=== PATIENT | male | born 1970 | race Hispanic/Latino ===

== ENCOUNTER 2017-07-28 03:50 | Inpatient (IN) | payer OTHER ==
[2017-07-28] MEDS ORDERED: Belladonna-Phenobarbital PO STA (04:29)
--- NOTE | 2017-07-28 04:58 | ED PDOC ---
HPI: Abdomen Time Seen by Provider: 07/28/17 04:18 Chief Complaint (Nursing): Abdominal Pain Chief Complaint (Provider): Abdominal Pain History Per: Patient History/Exam Limitations: no limitations Onset/Duration Of Symptoms: Hrs (x 7) Outside of [place] travel?: Yes Other Location:: [facility], [place] Current Symptoms Are (Timing): Still Present Additional Complaint(s): 47 year old male with a who presents to the ED complaining of right sided abdominal pain, onset 7 hours ago. With the onset of the pain, he reports that he had an urge to defecate. Patient had a brief wave of nausea and denies any vomiting. PMD: none Past Medical History Reviewed: Historical Data, Nursing Documentation, Vital Signs Vital Signs: Last Vital Signs Temp 99.3 F 07/28/17 04:16 Pulse 86 07/28/17 04:16 Resp 16 07/28/17 04:16 BP 129/76 07/28/17 04:16 Pulse Ox 98 07/28/17 05:18 - Medical History Other PMH: Testicular torsion - Family History Family History: States: Unknown Family Hx - Social History Current smoker - smoking cessation education provided: No Alcohol: None Drugs: Denies - Allergies Allergies/Adverse Reactions: Allergies Allergy/AdvReac Type Severity Reaction Status Date / Time No Known Allergies Allergy Verified 07/28/17 04:19 Review of Systems ROS Statement: Except As Marked, All Systems Reviewed And Found Negative Gastrointestinal: Positive for: Nausea (brief wave), Abdominal Pain (right sided ). Negative for: Vomiting Physical Exam - Reviewed Nursing Documentation Reviewed: Yes Vital Signs Reviewed: Yes - Physical Exam Appears: Positive for: Non-toxic, No Acute Distress Head Exam: Positive for: ATRAUMATIC, NORMOCEPHALIC Skin: Positive for: Normal Color, Warm, Dry Eye Exam: Positive for: Normal appearance, PERRL Neck: Positive for: Normal, Painless ROM, Supple Gastrointestinal/Abdominal: Positive for: Tenderness (right upper/ flank). Negative for: Other (Yeung's sign; epigastric tenderness) Extremity: Positive for: Normal ROM. Negative for: Pedal Edema, Deformity Neurologic/Psych: Positive for: Alert, Oriented. Negative for: Motor/Sensory Deficits - Laboratory Results Result Diagrams: 07/28/17 04:57 07/28/17 04:57 - ECG O2 Sat by Pulse Oximetry: 98 (RA) Pulse Ox Interpretation: Normal Medical Decision Making Medical Decision Making: Time: 04:28 Impression: mild colitis versus gas Initial Plan: --CMP --CBC with differentials --Obstructive series x-ray -- 2 tab PO --Ibuprofen 600 mg PO 650AM Pt. not improving with donnatol/NSAID. Will get CT Abdomen, will sign out to Dr. Marizol Garcia Attestation: Documented by Natacha Jamil, acting as a scribe for Jon Ceja MD Provider Scribe Attestation: All medical record entries made by the Scribe were at my direction and personally dictated by me. I have reviewed the chart and agree that the record accurately reflects my personal performance of the history, physical exam, medical decision making, and the department course for this patient. I have also personally directed, reviewed, and agree with the discharge instructions and disposition. Disposition - Clinical Impression Clinical Impression: Abdominal pain - Patient ED Disposition Is Patient to be Admitted: Transfer of Care - Disposition Disposition: Transfer of Care Disposition Time: 07:00 Condition: STABLE Forms: [email or web address] (Tongan) Patient Signed Over To: Dulce Fontana Handoff Comments: pending CT
[2017-07-28 05:00] LABS: BASO % 0.3 % (0.0-2.0); EOS % 0.4 % (0.0-4.0); LYMPH # 0.8 K/uL (1.0-4.3); LYMPH % 6.3 % (20.0-40.0); MEAN CELL VOLUME 91.3 fl (80.0-94.0); MEAN CORPUSCULAR HEMOGLOBIN 30.1 pg (27.0-31.0); MEAN PLATELET VOLUME 6.7 fl (7.2-11.7); MONO # 0.9 K/uL (0.0-0.8); MONO % 6.9 % (0.0-10.0); NEUT # 10.8 K/uL (1.8-7.0); NEUT % 86.1 % (50.0-75.0); PLATELET COUNT 222 K/uL (130-400); RED CELL DISTRIBUTION WIDTH 12.1 % (11.5-14.5); WHITE BLOOD COUNT 12.5 K/uL (4.8-10.8)
[2017-07-28 05:09] LABS: ALB/GLOB RATIO 1.3 (1.0-2.1); ALKALINE PHOSPHATASE 47 U/L (38-126); ALT/SGPT 49 U/L (21-72); AST/SGOT 27 U/L (17-59); BILIRUBIN,TOTAL 1.4 mg/dl (0.2-1.3); BLOOD UREA NITROGEN 19 mg/dl (9-20); CALCIUM 9.3 mg/dL (8.4-10.2); CARBON DIOXIDE 28 mmol/L (22-30); CHLORIDE 102 mmol/L (98-107); GFR AFRICAN-AMERICAN > 60; GLUCOSE,RANDOM 124 mg/dL (75-110); POTASSIUM 4.1 MMOL/L (3.6-5.0); SODIUM 135 mmol/l (132-148); TOTAL PROTEIN 7.4 G/DL (6.3-8.2)
[2017-07-28] MEDS ORDERED: Iohexol 240 (50 ml) PO ONE (05:47)
[2017-07-28] MEDS ORDERED: Sodium Chloride 0.9% 1,000 ML IV STA (05:48)
[2017-07-28 05:49] LABS: EOSINOPHIL 2 % (0-7); NEUTROPHIL 82 % (42-75); TOTAL CELLS COUNTED 100
--- NOTE | 2017-07-28 07:21 | ED PDOC ---
- Laboratory Results Result Diagrams: 07/28/17 04:57 07/28/17 04:57 - ECG O2 Sat by Pulse Oximetry: 98 (RA) Pulse Ox Interpretation: Normal Medical Decision Making Medical Decision Making: Receiving sign out: Patient signed out to me by Dr. Ceja at [address] Abdomen and re- evaluation. Scribe Attestation: Documented by Kalie Gonzalez acting as a scribe for Dulce Fontana MD. Provider Attestation: All medical record entries made by the Scribe were at my direction and personally dictated by me. I have reviewed the chart and agree that the record accurately reflects my personal performance of the history, physical exam, medical decision making, and the department course for this patient. I have also personally directed, reviewed, and agree with the discharge instructions and disposition. Disposition Doctor Will See Patient In The: Hospital Counseled Patient/Family Regarding: Diagnosis - Clinical Impression Clinical Impression: Abdominal pain - POA Present On Arrival: None - Disposition Disposition: Routine/Home Disposition Time: 09:50 Condition: STABLE Forms: [employer] ([place]an) Progress Note - Review of Symptoms Events since last encounter: Time: 946 CT Abdomen FINDINGS: LOWER THORAX: Unremarkable. LIVER: Unremarkable. No gross lesion or ductal dilatation. GALLBLADDER AND BILE DUCTS: Unremarkable. PANCREAS: Unremarkable. No gross lesion or ductal dilatation. SPLEEN: Unremarkable. ADRENALS: Unremarkable. No mass. KIDNEYS AND URETERS: Unremarkable. No hydronephrosis. No solid mass. VASCULATURE: Unremarkable. No aortic aneurysm. BOWEL: Unremarkable. No obstruction. No gross mural thickening. APPENDIX: Appendiceal enhancement with appendiceal fluid and periappendiceal fat infiltration consistent with acute appendicitis. PERITONEUM: Unremarkable. No free fluid. No free air. LYMPH NODES: Unremarkable. No enlarged lymph nodes. BLADDER: Unremarkable. REPRODUCTIVE: Unremarkable. BONES: No acute fracture. OTHER FINDINGS: None. IMPRESSION: Acute appendicitis. Time: 954 Case discussed with surgical nurse practitioner manager fashion.
[2017-07-28] MEDS ORDERED: Iohexol 300 100 ML IJ ONE (08:48)
--- NOTE | 2017-07-28 09:30 | CT ---
PROCEDURE: CT Abdomen and Pelvis with contrast HISTORY: R sided abd pain COMPARISON: None. TECHNIQUE: Contrast dose: Radiation dose: Total exam DLP = mGy-cm. This CT exam was performed using one or more of the following dose reduction techniques: Automated exposure control, adjustment of the mA and/or kV according to patient size, and/or use of iterative reconstruction technique. FINDINGS: LOWER THORAX: Unremarkable. LIVER: Unremarkable. No gross lesion or ductal dilatation. GALLBLADDER AND BILE DUCTS: Unremarkable. PANCREAS: Unremarkable. No gross lesion or ductal dilatation. SPLEEN: Unremarkable. ADRENALS: Unremarkable. No mass. KIDNEYS AND URETERS: Unremarkable. No hydronephrosis. No solid mass. VASCULATURE: Unremarkable. No aortic aneurysm. BOWEL: Unremarkable. No obstruction. No gross mural thickening. APPENDIX: Appendiceal enhancement with appendiceal fluid and periappendiceal fat infiltration consistent with acute appendicitis. PERITONEUM: Unremarkable. No free fluid. No free air. LYMPH NODES: Unremarkable. No enlarged lymph nodes. BLADDER: Unremarkable. REPRODUCTIVE: Unremarkable. BONES: No acute fracture. OTHER FINDINGS: None. IMPRESSION: Acute appendicitis.
[2017-07-28] MEDS ORDERED: Piperacillin/Tazobact 3.375 GM in Sodium Chloride 0.9% 100 ML IVPB STA (10:10)
[2017-07-28] MEDS ORDERED: ceFAZolin IV 1 gm in Dextrose 0 GM/0 ML BAG IVPB ONE (11:17)
[2017-07-28] MEDS ORDERED: Bupivacaine 0.5% Inj(30mL) ONE (11:17)
[2017-07-28] MEDS ORDERED: Lidocaine 1% Inj (20ml) ONE (11:17)
--- NOTE | 2017-07-28 11:17 | RAD ---
PROCEDURE: Radiographs of the chest and abdomen (obstructive series) HISTORY: R sided abd pain COMPARISON: No prior. TECHNIQUE: AP radiograph of the chest, with upright and supine radiographs of the abdomen. FINDINGS: CHEST: Lungs: Clear. Cardiovascular: Normal size heart. No pulmonary vascular congestion. Pleura: No pleural fluid. No pneumothorax. Other findings: None. ABDOMEN AND PELVIS: Bowel: Unremarkable bowel gas pattern. No evidence of mechanical obstruction. Free air: None. Bones: Unremarkable. Other findings: None. IMPRESSION: Unremarkable radiographs of chest and abdomen. No evidence of mechanical bowel obstruction.
[2017-07-28] MEDS ORDERED: Lidocaine 4% (Laryng-O-Jet) Kit MM ONE (11:20)
[2017-07-28] MEDS ORDERED: Neostigmine Methylsulfate 2 MG/2 ML ML IV ONE (11:20)
[2017-07-28] MEDS ORDERED: Midazolam 2 MG/2 ML VIAL ONE (11:20)
[2017-07-28] MEDS ORDERED: Propofol 10 mg/ml Inj (20 ML) ONE (11:20)
[2017-07-28] MEDS ORDERED: Lidocaine 1% 5ml Abboject IV ONE (11:20)
[2017-07-28] MEDS ORDERED: Succinylcholine 200 mg/10 ml Inj IV ONE (11:20)
[2017-07-28] MEDS ORDERED: Rocuronium 10 mg/ml (5 ml) ONE (11:21)
--- NOTE | 2017-07-28 11:57 | CP.PCM.HP ---
<Soledad Benitez - Last Filed: 07/28/17 12:01> History of Present Illness - History of Present Illness History of Present Illness: GENERAL SURGERY HISTORY AND PHYSICAL FOR DR. SUAREZ 47yo M with PMHx of testicular torsion s/p repair presents to the ED with abdominal pain. His abdominal pain began around 6pm yesterday and was located in the RUQ/right flank. He tried pepto bismol and gasx which didn't not relieve his symptoms. He came to the ED around 3-4am this morning. He describes the pain as constant but was relieved after pain medication in the ED. He had a little nausea in the waiting room but it resolved. No vomiting. No diarrhea, last BM was last night. He last ate yesterday at 4pm. PMHx: testicular torsion as 12yo, GERD but now off meds, borderline hyperlipidemia Surgeries: surgery for testicular torsion Allergies: none Medications: none Social history: occasional etoh, former smoker, quit 17years ago, no illicit drug use Present on Admission - Present on Admission Any Indicators Present on Admission: No Review of Systems - Review of Systems All systems: reviewed and no additional remarkable complaints except (as per HPI ) Past Patient History - Past Medical History & Family History Past Medical History?: Yes - Past Social History Smoking Status: Former Smoker - CARDIAC Hx Cardiac Disorders: No - MUSCULOSKELETAL/RHEUMATOLOGICAL Hx Falls: No - GASTROINTESTINAL Other/Comment: endoscopy - GENITOURINARY/GYNECOLOGICAL Other/Comment: testicular torsion - PSYCHIATRIC Hx Substance Use: No - SURGICAL HISTORY Hx Surgeries: No - ANESTHESIA Hx Anesthesia: Yes Hx Anesthesia Reactions: No Meds Allergies/Adverse Reactions: Allergies Allergy/AdvReac Type Severity Reaction Status Date / Time No Known Allergies Allergy Verified 07/28/17 04:19 Physical Exam - Constitutional Appears: Well, Non-toxic, No Acute Distress - Head Exam Head Exam: ATRAUMATIC, NORMAL INSPECTION - Eye Exam Eye Exam: EOMI, Normal appearance - ENT Exam ENT Exam: Mucous Membranes Moist - Respiratory Exam Respiratory Exam: NORMAL BREATHING PATTERN. absent: Respiratory Distress - Cardiovascular Exam Cardiovascular Exam: +S1, +S2 - GI/Abdominal Exam GI & Abdominal Exam: Soft, Tenderness (tender in RUQ). absent: Distended, Firm , Guarding, Rebound, Rigid - Extremities Exam Extremities exam: Positive for: normal inspection. Negative for: calf tenderness - Neurological Exam Neurological exam: Alert, CN II-XII Intact, Oriented x3 - Psychiatric Exam Psychiatric exam: Normal Affect, Normal Mood - Skin Skin Exam: Dry, Normal Color, Warm Results - Vital Signs Recent Vital Signs: Last Vital Signs Temp 99.2 F 07/28/17 11:15 Pulse 100 H 07/28/17 11:30 Resp 19 07/28/17 11:30 BP 110/68 07/28/17 11:15 Pulse Ox 95 07/28/17 11:15 - Labs Result Diagrams: 07/28/17 04:57 07/28/17 04:57 Labs: Laboratory Results - last 24 hr 07/28/17 07/28/17 07/28/17 04:57 04:57 05:57 WBC 12.5 H RBC 4.49 Hgb 13.5 Hct 41.0 MCV 91.3 MCH 30.1 MCHC 33.0 RDW 12.1 Plt Count 222 MPV 6.7 L Neut % (Auto) 86.1 H Lymph % (Auto) 6.3 L [place] % (Auto) 6.9 Eos % (Auto) 0.4 Baso % (Auto) 0.3 Neut # 10.8 H Lymph # 0.8 L [place] # 0.9 H Eos # 0.0 Baso # 0.0 Neutrophils % (Manual) 82 H Lymphocytes % (Manual) 11 L Monocytes % (Manual) 5 Eosinophils % (Manual) 2 Platelet Estimate Normal Sodium 135 Potassium 4.1 Chloride 102 Carbon Dioxide 28 Anion Gap 9 L BUN 19 Creatinine 0.9 Est GFR ( Amer) > 60 Est GFR (Non-Af Amer) > 60 Random Glucose 124 H Calcium 9.3 Total Bilirubin 1.4 H AST 27 ALT 49 Alkaline Phosphatase 47 Total Protein 7.4 Albumin 4.2 Globulin 3.2 Albumin/Globulin Ratio 1.3 Lipase 39 Assessment & Plan - Assessment and Plan (Free Text) Assessment: 47yo M with PMHx of testicular torsion s/p repair presents with abdominal pain and was found to have acute appendicitis - Afebrile, VSS - No leukocytosis - CT: appendiceal enhancement w/ appendiceal fluid & periappendiceal fat infiltration compatible with acute appendicitis - OR now for laparoscopic appendectomy, possible open - Procedure and risks discussed with patient and , all questions were answered, written consent was obtained - NPO, IV fluids - IV Zosyn - Morphine & Zofran PRN - SCDs - Discussed plan with Dr. Daniela Benitez PGY-3 <Mushtaq Suarez - Last Filed: 07/29/17 15:12> Results - Vital Signs Recent Vital Signs: Last Vital Signs Temp 98.4 F 07/29/17 07:51 Pulse 82 07/29/17 07:51 Resp 17 07/29/17 07:51 BP 114/69 07/29/17 07:51 Pulse Ox 96 07/29/17 07:51 - Labs Result Diagrams: 07/29/17 05:45 07/29/17 05:45 Labs: Laboratory Results - last 24 hr 07/29/17 07/29/17 05:45 05:45 WBC 10.1 RBC 3.96 L Hgb 12.1 Hct 36.3 MCV 91.6 MCH 30.6 MCHC 33.4 RDW 12.5 Plt Count 212 MPV 7.0 L Neut % (Auto) 76.3 H Lymph % (Auto) 13.9 L [place] % (Auto) 8.4 Eos % (Auto) 1.2 Baso % (Auto) 0.2 Neut # 7.7 H Lymph # 1.4 [place] # 0.8 Eos # 0.1 Baso # 0.0 Sodium 140 Potassium 3.8 Chloride 105 Carbon Dioxide 31 H Anion Gap 8 L BUN 12 Creatinine 1.0 Est GFR ( Amer) > 60 Est GFR (Non-Af Amer) > 60 Random Glucose 97 Calcium 8.5 Attending/Attestation - Attestation I have personally seen and examined this patient.: Yes I have fully participated in the care of the patient.: Yes I have reviewed all pertinent clinical information: Yes Notes (Text): Pt was seen and examined at bedside Agree with above note and assessment Pt with Acute appendicitis RLQ tenderness Labs and radiology reviewed Ass: Acute Appendicitis Plan : Lap Appendectomy possible Open Consent NPO, IVF IV antibiotics Plan d.w pt in detail Risk and benefit explained in detail.
[2017-07-28] MEDS ORDERED: Lactated Ringer's 1,000 ML IV ONE (12:17)
[2017-07-28] MEDS ORDERED: HYDROmorphone 0.5 mg/0.5 ml ISec IVP PRN (13:58)
[2017-07-28] MEDS ORDERED: Lactated Ringer's 1,000 ML IV SCH (14:00)
--- NOTE | 2017-07-28 14:09 | PCM.SURG1 ---
Surgeon's Initial Post Op Note - Surgeon's Notes Surgeon: Dr. Suarez Director Of Technology: Dr. Benitez PGY-3 Type of Anesthesia: General Endo, Local Pre-Operative Diagnosis: Acute appendicitis Operative Findings: Acute appendicitis Post-Operative Diagnosis: Acute appendicitis Operation Performed: Laparoscopic appendectomy Specimen/Specimens Removed: appendix Estimated Blood Loss: EBL {In ML}: 10 Blood Products Given: N/A Drains Used: No Drains Post-Op Condition: Good Date of Surgery/Procedure: 07/28/17 Time of Surgery/Procedure: 12:00
[2017-07-28] MEDS ORDERED: HYDROmorphone 0.5 mg/0.5 ml ISec ONE (14:50)
[2017-07-28] MEDS: Piperacillin/Tazobact 3.375 GM in Sodium Chloride 0.9% 100 ML IVPB SCH (17:43)
[2017-07-28] MEDS: Oxycodone/Acetaminophen 5/325 mg Tab PO PRN (20:04)
--- NOTE | 2017-07-28 21:24 | OP ---
PROCEDURE DATE: 07/28/2017 PREOPERATIVE DIAGNOSIS: Acute appendicitis. POSTOPERATIVE DIAGNOSES: 1. Acute paracecal appendicitis. 2. Extensive peritoneal adhesion. PROCEDURES: 1. Laparoscopic appendectomy. 2. Laparoscopic lysis of adhesions. SURGEON: Mushtaq Suarez MD. SAFE AND VAULT INSTALLER: Soledad Benitez, PGY-3, resident. TYPE OF ANESTHESIA: General endotracheal tube anesthesia. ESTIMATED BLOOD LOSS: Around 10 mL. DRAIN: None. PATHOLOGY: Appendix was sent for the pathology. COMPLICATIONS: None. INTRAOPERATIVE FINDINGS: The patient had acute appendicitis in the paracecal to retrocecal position with extensive peritoneal adhesions. DESCRIPTION OF PROCEDURE: On intraoperative step, this is a 47-year-old male who was diagnosed with acute appendicitis and the patient was consented for laparoscopic appendectomy, possible open, brought to the OR, placed supine on operating table. After induction of the anesthesia, the abdomen was prepped and draped in the usual sterile fashion. An infraumbilical transverse incision was made. After incising skin and subcutaneous tissue, the fascia was incised. Hari port was placed. Pneumo was created. The 5 mm port was placed in the midline, in the suprapubic region. Another 12 mm port was placed in the left upper quadrant due to the position of the appendix was in the paracecal to retrocecal origin and in the right upper quadrant and after that, a grasper and dissector were introduced. The right colon was mobilized medially, appendix was identified and the appendix was freed from the peritoneal adhesions and the mesoappendix was identified. The mesoappendix was resected with the Harmonic scalpel. Base of the appendix was resected with MCKAYLA and there was a proper hemostasis in each and every part of the procedure and the pelvis was checked and there was no pelvic abscess identified. The perihepatic area also had no evidence of collection or abscess and after proper hemostasis, the appendix was taken out through the umbilical port site and sent to the table for pathology. Appendix was placed in an EndoCatch bag before removal. Now, all the port was taken out under vision. Pneumo was deflated. The umbilical port site was closed in 2 layers, the fascia with 0 Vicryl interrupted sutures, skin with 4-0 Monocryl and dry sterile dressing was applied. The patient tolerated the procedure well. Count of the instrument and gauze was correct. There was no apparent complication. Mushtaq Suarez MD [facility] # [id number]
[2017-07-29 00:04] VITALS: TEMP 98.4; O2SAT 96
[2017-07-29] MEDS: Piperacillin/Tazobact 3.375 GM in Sodium Chloride 0.9% 100 ML IVPB SCH ×2 (00:35→09:26)
[2017-07-29] MEDS: Oxycodone/Acetaminophen 5/325 mg Tab PO PRN (03:39)
[2017-07-29 05:57] LABS: BASO % 0.2 % (0.0-2.0); EOS # 0.1 K/uL (0.0-0.7); EOS % 1.2 % (0.0-4.0); HEMATOCRIT 36.3 % (35.0-51.0); LYMPH # 1.4 K/uL (1.0-4.3); LYMPH % 13.9 % (20.0-40.0); MEAN CELL VOLUME 91.6 fl (80.0-94.0); MEAN CORPUSCULAR HEMOGLOBIN 30.6 pg (27.0-31.0); MEAN CORPUSCULAR HGB CONC 33.4 g/dL (33.0-37.0); MONO # 0.8 K/uL (0.0-0.8); MONO % 8.4 % (0.0-10.0); NEUT # 7.7 K/uL (1.8-7.0); NEUT % 76.3 % (50.0-75.0); RED CELL DISTRIBUTION WIDTH 12.5 % (11.5-14.5); WHITE BLOOD COUNT 10.1 K/uL (4.8-10.8)
[2017-07-29 06:10] LABS: BLOOD UREA NITROGEN 12 mg/dl (9-20); CALCIUM 8.5 mg/dL (8.4-10.2); CARBON DIOXIDE 31 mmol/L (22-30); CHLORIDE 105 mmol/L (98-107); GFR AFRICAN-AMERICAN > 60; GLUCOSE,RANDOM 97 mg/dL (75-110); POTASSIUM 3.8 MMOL/L (3.6-5.0); SODIUM 140 mmol/l (132-148)
[2017-07-29 07:51] VITALS: BP 114/69; PULSE 82; RESP 17
--- NOTE | 2017-07-29 07:52 | CP.PCM.DIS ---
Provider - Provider Date of Admission: 07/28/17 10:12 Attending physician: Mushtaq Suarez MD Time Spent in preparation of Discharge (in minutes): 55 Diagnosis - Discharge Diagnosis (1) Appendicitis, acute Status: Resolved (2) S/P appendectomy Status: Acute Hospital Course - Lab Results Lab Results: Most Recent Lab Values WBC 10.1 K/uL (4.8-10.8) 07/29/17 05:45 RBC 3.96 Mil/uL (4.40-5.90) L 07/29/17 05:45 Hgb 12.1 g/dL (12.0-18.0) 07/29/17 05:45 Hct 36.3 % (35.0-51.0) 07/29/17 05:45 MCV 91.6 fl (80.0-94.0) 07/29/17 05:45 MCH 30.6 pg (27.0-31.0) 07/29/17 05:45 MCHC 33.4 g/dL (33.0-37.0) 07/29/17 05:45 RDW 12.5 % (11.5-14.5) 07/29/17 05:45 Plt Count 212 K/uL (130-400) 07/29/17 05:45 MPV 7.0 fl (7.2-11.7) L 07/29/17 05:45 Neut % (Auto) 76.3 % (50.0-75.0) H 07/29/17 05:45 Lymph % (Auto) 13.9 % (20.0-40.0) L 07/29/17 05:45 [place] % (Auto) 8.4 % (0.0-10.0) 07/29/17 05:45 Eos % (Auto) 1.2 % (0.0-4.0) 07/29/17 05:45 Baso % (Auto) 0.2 % (0.0-2.0) 07/29/17 05:45 Neut # 7.7 K/uL (1.8-7.0) H 07/29/17 05:45 Lymph # 1.4 K/uL (1.0-4.3) 07/29/17 05:45 [place] # 0.8 K/uL (0.0-0.8) 07/29/17 05:45 Eos # 0.1 K/uL (0.0-0.7) 07/29/17 05:45 Baso # 0.0 K/uL (0.0-0.2) 07/29/17 05:45 Neutrophils % (Manual) 82 % (42-75) H 07/28/17 04:57 Lymphocytes % (Manual) 11 % (20-50) L 07/28/17 04:57 Monocytes % (Manual) 5 % (0-10) 07/28/17 04:57 Eosinophils % (Manual) 2 % (0-7) 07/28/17 04:57 Platelet Estimate Normal (NORMAL) 07/28/17 04:57 PT 14.6 Seconds (9.8-13.1) H 07/28/17 11:50 INR 1.3 (0.9-1.2) H 07/28/17 11:50 APTT 40.0 Seconds (25.6-37.1) H 07/28/17 11:50 Sodium 140 mmol/l (132-148) 07/29/17 05:45 Potassium 3.8 MMOL/L (3.6-5.0) 07/29/17 05:45 Chloride 105 mmol/L (98-107) 07/29/17 05:45 Carbon Dioxide 31 mmol/L (22-30) H 07/29/17 05:45 Anion Gap 8 (10-20) L 07/29/17 05:45 BUN 12 mg/dl (9-20) 07/29/17 05:45 Creatinine 1.0 mg/dl (0.8-1.5) 07/29/17 05:45 Est GFR ( Amer) > 60 07/29/17 05:45 Est GFR (Non-Af Amer) > 60 07/29/17 05:45 Random Glucose 97 mg/dL (75-110) 07/29/17 05:45 Calcium 8.5 mg/dL (8.4-10.2) 07/29/17 05:45 Total Bilirubin 1.4 mg/dl (0.2-1.3) H 07/28/17 04:57 AST 27 U/L (17-59) 07/28/17 04:57 ALT 49 U/L (21-72) 07/28/17 04:57 Alkaline Phosphatase 47 U/L (38-126) 07/28/17 04:57 Total Protein 7.4 G/DL (6.3-8.2) 07/28/17 04:57 Albumin 4.2 g/dL (3.5-5.0) 07/28/17 04:57 Globulin 3.2 gm/dL (2.2-3.9) 07/28/17 04:57 Albumin/Globulin Ratio 1.3 (1.0-2.1) 07/28/17 04:57 Lipase 39 U/L (23-300) 07/28/17 05:57 - Hospital Course Hospital Course: Pt was admitted on 07/28 for abdominal pain in the ED the patient had a negative obstructive series and a CT positive for an acute appendicitis. He was taken to the OR for a laparoscopic appendectomy. The patient handled the procedure well. His post operative course was unremarkable. Next day labs and vitals were all within normal acceptable limits. The patient had expected mild post operative discomfort with a benign physical exam. All dressing were clean dry and intact. Discharge Exam - Head Exam Head Exam: ATRAUMATIC, NORMAL INSPECTION - Eye Exam Eye Exam: EOMI, Normal appearance - ENT Exam ENT Exam: Mucous Membranes Dry - Respiratory Exam Respiratory Exam: NORMAL BREATHING PATTERN, UNREMARKABLE - Cardiovascular Exam Cardiovascular Exam: REGULAR RHYTHM - GI/Abdominal Exam GI & Abdominal Exam: Soft, Unremarkable. absent: Guarding, Rebound, Rigid, Tenderness (Apropriate inscisional tenderness and mild right sided lower abdominal tenderness ) - Neurological Exam Neurological exam: Alert, Oriented x3 - Skin Skin Exam: Dry, Normal Color, Warm Discharge Plan - Follow Up Plan Condition: STABLE Disposition: HOME/ ROUTINE Patient education suggested?: Yes Instructions: Acute Abdominal Pain (DC), Acute Abdominal Pain (GEN), Laparoscopic Appendectomy (DC) Additional Instructions: If you develop fevers chills worsening pain, shortness of breath or any new alarming symptoms please contact you primary care provider or go to the emergency department. No heavy lifting over 20-30lbs for 4 weeks, no core exercises. For pain take motrin or tylenol as directed on bottle. You can shower and remove your bandages on Monday 07/30. You may return to work at your earliest convenience provided you do not do any strenuous physical activity. Please follow up with Dr. Suarez in clinic in 7-10 days. Referrals: Mushtaq Suarez MD [Staff Provider] -
[2017-07-29] MEDS ORDERED: Influenza Vaccine 18yr & older 0.5 ML/45 MCG SYR IM ONE (09:55)
== END 2017-07-29 13:10 | disposition home or self-care (01) | DRG 337 ==
LOC: H.ER 03:50 → H.ERHOLD 10:12 → H.MEDSURG1 11:09
PROVIDERS: ADMIT Surgery Surgical Critical Care; ATTEND Surgery Surgical Critical Care
PROC: 0DNW4ZZ Release Peritoneum, Percutaneous Endoscopic Approach (ICD-10-PCS; 2017-07-28)
PROC: 0DTJ4ZZ Resection of Appendix, Percutaneous Endoscopic Approach (ICD-10-PCS; principal; 2017-07-28 11:15)
DX: K35.80 Unspecified acute appendicitis (principal); E78.5 Hyperlipidemia, unspecified; K66.0 Peritoneal adhesions (postprocedural) (postinfection); Z87.891 Personal history of nicotine dependence; K21.9 Gastro-esophageal reflux disease without esophagitis